=== PATIENT | female | born 1980 | race Two or more races ===

== ENCOUNTER 2019-08-06 21:39 | Emergency (ER) | payer OTHER ==
[~2019-08-06] VITALS: Ht 152.4 cm; Wt 68.0 kg
[2019-08-06] MEDS ORDERED: DILANTIN30 MG (22:04)
== END 2019-08-06 23:01 | disposition home or self-care (01) ==
LOC: ER 21:39
DX: S20.212A Contusion of left front wall of thorax, initial encounter (principal); S20.211A Contusion of right front wall of thorax, initial encounter; W18.09XA Striking against other object with subsequent fall, initial encounter; Y93.89 Activity, other specified; Y92.89 Other specified places as the place of occurrence of the external cause; Y99.8 Other external cause status

== ENCOUNTER → 2019-08-19 | Emergency (ER) | payer OTHER ==
[~2019-08-19] MED LIST: DILANTIN30 MG
== END | disposition left against medical advice (07) ==
LOC: ER 11:17
DX: Z53.20 Procedure and treatment not carried out because of patient's decision for unspecified reasons (principal)

== ENCOUNTER 2019-09-22 12:25 | Emergency (ER) | payer OTHER ==
[~2019-09-22] VITALS: Ht 144.8 cm; Wt 68.0 kg
[2019-09-22] MEDS ORDERED: ZITHROMAX500 MG PO (16:22)
[2019-09-22] MEDS ORDERED: SYMBICORT 16010.2 GM IH (16:22)
[2019-09-22] MEDS ORDERED: TESSALON PERLE100 M1 PO (16:22)
[2019-09-22] MEDS ORDERED: MUCINEX DM ER1 EAC1 PO (16:22)
== END 2019-09-22 16:46 ==
LOC: ER 12:25
DX: S00.83XA Contusion of other part of head, initial encounter (principal); W18.39XA Other fall on same level, initial encounter; Y93.89 Activity, other specified; Y92.098 Other place in other non-institutional residence as the place of occurrence of the external cause; Y99.8 Other external cause status; J06.9 Acute upper respiratory infection, unspecified; G40.909 Epilepsy, unspecified, not intractable, without status epilepticus; B96.0 Mycoplasma pneumoniae [M. pneumoniae] as the cause of diseases classified elsewhere; M25.562 Pain in left knee; M79.621 Pain in right upper arm; B34.9 Viral infection, unspecified

== ENCOUNTER 2019-10-14 00:04 | Emergency (ER) | payer OTHER ==
[~2019-10-14] VITALS: Ht 157.5 cm; Wt 68.0 kg
[~2019-10-14 00:04] MED LIST changes: +MUCINEX DM ER1 EAC1 PO; +SYMBICORT 16010.2 GM IH; +TESSALON PERLE100 M1 PO; +ZITHROMAX500 MG PO
== END 2019-10-14 06:40 | disposition home or self-care (01) ==
LOC: ER 00:04
DX: S80.02XA Contusion of left knee, initial encounter (principal); M62.838 Other muscle spasm; M25.512 Pain in left shoulder; M54.2 Cervicalgia; G40.802 Other epilepsy, not intractable, without status epilepticus; W18.39XA Other fall on same level, initial encounter; Y93.9 Activity, unspecified; Y92.89 Other specified places as the place of occurrence of the external cause; Y99.8 Other external cause status

== ENCOUNTER → 2019-11-19 | Emergency (ER) | payer OTHER ==
[~2019-11-19] VITALS: Ht 152.4 cm; Wt 68.0 kg
== END | disposition left against medical advice (07) ==
LOC: ER 07:05
DX: Z53.20 Procedure and treatment not carried out because of patient's decision for unspecified reasons (principal)

== ENCOUNTER 2019-12-06 02:45 | Emergency (ER) | payer OTHER ==
[~2019-12-06] VITALS: Ht 152.4 cm; Wt 68.0 kg
[2019-12-06] MEDS ORDERED: KETO10TA2 PO (05:54)
[2019-12-06] MEDS ORDERED: TAMS0.4C PO (05:54)
[2019-12-06] MEDS ORDERED: URIN D.S. TABL1 EACH PO (05:54)
[2019-12-06] MEDS ORDERED: DICY20TA PO (05:54)
== END 2019-12-06 06:05 | disposition home or self-care (01) ==
LOC: ER 02:45
DX: N20.1 Calculus of ureter (principal); R10.32 Left lower quadrant pain

== ENCOUNTER → 2020-07-25 | Emergency (ER) | payer OTHER ==
[~2020-07-25] MED LIST changes: +DICY20TA PO; +KETO10TA2 PO; +TAMS0.4C PO; +URIN D.S. TABL1 EACH PO
== END | disposition left against medical advice (07) ==
LOC: ER 13:09
DX: Z53.21 Procedure and treatment not carried out due to patient leaving prior to being seen by health care provider (principal)

== ENCOUNTER 2020-08-16 22:27 | Emergency (ER) | payer OTHER ==
[~2020-08-16] VITALS: Ht 167.6 cm; Wt 72.1 kg
== END 2020-08-17 06:04 | disposition home or self-care (01) ==
LOC: ER 22:27
DX: S80.02XA Contusion of left knee, initial encounter (principal); W18.39XA Other fall on same level, initial encounter; Y93.89 Activity, other specified; Y92.098 Other place in other non-institutional residence as the place of occurrence of the external cause; Y99.8 Other external cause status

== ENCOUNTER → 2020-10-12 | Emergency (ER) | payer OTHER ==
[~2020-10-12] VITALS: Ht 152.4 cm; Wt 45.4 kg
== END | disposition left against medical advice (07) ==
LOC: ER 12:36
DX: S40.022A Contusion of left upper arm, initial encounter (principal); T74.11XA Adult physical abuse, confirmed, initial encounter; Y07.01 Husband, perpetrator of maltreatment and neglect; Y08.89XA Assault by other specified means, initial encounter